=== PATIENT | female | born 1965 | race Caucasian/White ===

== ENCOUNTER 2018-03-23 16:44 | Inpatient (IN) | payer BC, SELFPAY ==
[~2018-03-23] VITALS: Ht 160 cm; Wt 62.1 kg
[~2018-03-23 16:44] MED LIST: AMITRIPTYLINE; CELEXA10 MG PO; COPAXONE
[2018-03-23 16:49] VITALS: BP 171/80
[2018-03-23] MEDS ORDERED: REMERON15 MG PO (16:53)
[2018-03-23] MEDS ORDERED: OMEPRAZOLE40 MG PO (16:53)
[2018-03-23] MEDS ORDERED: COPAXONE20 MG/SYR SUBQ (16:53)
[2018-03-23 17:18] LABS: ABSOLUTE BASOPHILS 0.1 thou/uL (0.0-0.2); ABSOLUTE EOSINOPHILS 0.1 thou/uL (0.0-0.7); ABSOLUTE LYMPHOCYTES 1.6 thou/uL (0.8-5.3); ABSOLUTE MONOCYTES 0.6 thou/uL (0.0-1.2); BASOPHILS 0.8 %; EOSINOPHILS 1.9 %; HEMATOCRIT 38.8 % (37.0-47.0); HEMOGLOBIN 13.9 gm/dL (12.0-15.0); LYMPHOCYTES 24.7 %; MCHC 35.8 g/dL (28.0-37.0); MCV 86.7 fL (80.0-100.0); MPV 7.5 fl. (7.2-11.1); NUCLEATED RBCS 0 /100WBC; PLATELET COUNT* 263 thou/uL (150-400); POLYS 62.6 %; RBC 4.48 mil/uL (4.20-5.00); RDW-CV 13.6 % (10.5-14.5); WBC 6.3 thou/uL (4.0-11.0)
[2018-03-23 17:27] LABS: PROTIME 10.2 Seconds (9.20-11.50)
[2018-03-23 17:28] LABS: ANION GAP 8 mmol/L (7-16); BUN 11 mg/dL (7-18); CALCIUM 9.7 mg/dL (8.5-10.1); CHLORIDE 103 mmol/L (98-107); CO2 28 mmol/L (21-32); CREATININE 0.7 mg/dL (0.6-1.3); GLUCOSE 85 mg/dL (70-99); POTASSIUM 3.5 mmol/L (3.5-5.1); SODIUM 139 mmol/L (136-145)
[2018-03-23 17:39] LABS: ALBUMIN 4.1 g/dL (3.4-5.0); ALKALINE PHOSPHATASE 69 U/L (46-116); LIPASE 104 U/L (73-393); NT-PRO BRAIN NAT PEPTIDE 510 pg/mL (<300); SGOT 20 U/L (15-37); SGPT 27 U/L (30-65); TOTAL BILIRUBIN 0.5 mg/dL (<0.1-1.0); TOTAL PROTEIN 8.1 g/dL (6.4-8.2); TROPONIN-I LEVEL <0.06 ng/mL (<0.06)
[2018-03-23 18:05] VITALS: BP 156/80
[2018-03-23 18:16] LABS: AMP/METHAMP Negative (Negative); BARBITURATES Negative (Negative); BENZODIAZEPINES Negative (Negative); COCAINE Negative (Negative); METHADONE Negative (Negative); OPIATES Negative (Negative); PCP Negative (Negative); THC Negative (Negative)
[2018-03-23 18:27] VITALS: BP 155/76
--- NOTE | 2018-03-23 18:35 | NUR ---
PT ADMITTED FROM ED WITH CHEST PAIN. TELE SR, HRR. C/O SLIGHT SOA AT REST. RESPIRATIONS EVEN AND UNLABORED AT REST. ABLE TO TRANSFER INDEPENDENTLY. PT ORIENTED TO ROOM. PT ABLE TO MAKE NEEDS KNOWN, CALL LIGHT IN REACH
[2018-03-23 20:28] VITALS: BP 127/67
[2018-03-24 00:09] VITALS: BP 126/77
[2018-03-24 04:26] VITALS: BP 138/68
[2018-03-24 04:56] LABS: CHOLESTEROL 196 mg/dL (<200); HDL CHOLESTEROL 84 mg/dL (>40); LDL CHOLESTEROL 103 mg/dL (<100); TC:HDL 2.3 Ratio (Not establshd); TRIGLYCERIDE 49 mg/dL (<150); VLDL 10 mg/dL (<40)
[2018-03-24 05:00] LABS: SERUM ASSESSMENT Clear
--- NOTE | 2018-03-24 06:55 | NUR ---
PT IS ABLE TO COMMUNICATE HER NEEDS TO STAFF EFFECTIVELY. SHE HAS DENIED THE NEED FOR PAIN MEDICATION UP TO THIS TIME. SHE HAS BEEN NPO SINCE MIDNIGHT FOR A LIPIN PANEL BLOOD DRAW THIS AM AND A STRESS TEST TO BE SCHEDULED LATER TODAY.
[2018-03-24 08:00] VITALS: BP 146/81
[2018-03-24 12:00] VITALS: BP 134/61
[2018-03-24 16:00] VITALS: BP 127/53
[2018-03-24 16:34] VITALS: BP 134/61
--- NOTE | 2018-03-24 17:23 | NUR ---
ASSUMED CARE OF PT AT 0730. PT WAS NPO THIS AM FOR A STRESS TEST THAT WAS COMPLETED THIS AFTERNOON. AWAITING RESULTS OF STRESS TEST AT THIS TIME. PT IS TO DISCHARGEIF STRESS TEST RESULTS ARE NORMAL. PT HAS BEEN CALM AND COOPERATIVE WITH NO C/O PAIN OR DISTRESS TODAY. VSS AND TRACING ST ON THE MONITOR. HOURLY ROUNDING COMPLETED FOR PATIENT COMFORT AND SAFTEY. NURSIGN WILL CONTINUE TO MONITOR.
--- NOTE | 2018-03-24 18:28 | NUR ---
PT IS BEGINING TO BECOME AGGITATED WATING FOR RESULTS. THIS NURSE EXPLAINED TO HER THAT ALL TEST HAVE TO BE DICTATED BY THE HIDE BUYER AND THAT THEY ARE WORKING FAST SAFLEY POSSIBLE TO COMPLETE ALL TASK AT HAND. THIS NURSE HAS ALL DISCHARGE PAPERWORK COMPLETED AND READY FOR DISCHARGE SOON CARDIOLOGY STATES THAT THE PT MAY GO.
--- NOTE | 2018-03-24 19:59 | CARDNUC ---
[place] [address] CARDIAC NUCLEAR IMAGING REPORT Name: SKYE DEVLIN Room: [address] IN [facility]#: [id number] Admission: 03/23/18 Attend Phys: Wiley Oleary, Discharge: Date of : 67 Date of Service: 03/24/181958 Report #: [id number] THIS REPORT FOR: //name// APPROVED REPORT Study performed: 03/23/2018 18:28:00 Indication: Chest pain Patient Location: Out-Patient Stress Tech: Claudia Mark Stress Nurse: Daisy Hatfield RN Ht: 5 ft 3 in Wt: 137 lbs BSA: 1.65 m2 BMI: 24.26 Medical History Medical History: tachycardia, MS Medications: asa Allergies: amitriptylline Cardiac Risk Factors: - Previous Cardiac Procedures: - Exercise History: Physically active Meds Held (24 hrs): - Resting Data Rest SPECT myocardial perfusion imaging was performed in supine position 30 minutes following the intravenous injection of 10.8 mCi of Tc-99m Sestamibi. Time of rest injection: 11:50 The images were gated to evaluate regional wall motion and calculate left ventricular ejection fraction. Administration Route: IV Administration Site: Right Wrist Exercise Stress At peak stress, the patient was injected intravenously with 33.9mCi of Tc-99m Sestamibi. Time of stress injection: 13:40 Administration Route: IV Administration Site: Right Wrist Heart Rate at time of stress injection: 158 bpm. Gated Stress SPECT was performed 30 minutes after stress injection. The images were gated to evaluate regional wall motion and calculate left [place] [address] CARDIAC NUCLEAR IMAGING REPORT Name: SKYE DEVLIN Room: [address]#: [id number] Admission: 03/23/18 Attend Phys: Wiley Oleary, Discharge: Date of : 67 Date of Service: 03/24/181958 Report #: [id number] Prone imaging was performed. Stress Test Details Stress Test: Exercise stress testing was performed using a Telly protocol. HR Max Heart Rate (APMHR): 169 bpm Resting HR: 104 bpm Target HR (85% APMHR): 143 bpm Max HR Achieved: 158 bpm % of APMHR: 93 Recovery HR: 119 bpm HR response to stress: Normal HR response to stress BP Resting BP: 159/80 mmHg Recovery BP: 171/76 mmHg BP response to stress: Normal blood pressure response to stress. ECG Resting ECG: Sinus Rhythm Stress ECG: Sinus Tachycardia ST Change: None Arrhythmia: None Recovery ECG: Sinus Rhythm Recovery ST Change: None Recovery Arrhythmia: None Clinical Reason for Termination: Maximal effort Stress Symptoms: None Exercise duration: 7 min 0 sec Exercise capacity: 8.54 METs Overall Exercise Capacity for Age: Normal The patient tolerated standard Telly protocol exercise without significant symptoms. Stress ECG Conclusion The baseline 12-lead electrocardiogram showed sinus rhythm with no significant ST or T wave abnormalities. EKGs obtained during and post exercise showed sinus rhythm and sinus tachycardia with no significant ST or T-wave inversion. There were no stress-induced arrhythmias. Study Quality Study: [place] [address] CARDIAC NUCLEAR IMAGING REPORT Name: SKYE DEVLIN Room: [address]#: [id number] Admission: 03/23/18 Attend Phys: Wiley Oleary, Discharge: Date of : 67 Date of Service: 03/24/181958 Report #: [id number] Artifact: Mild Study Data At rest, the left ventricular ejection fraction was 75%.. Post stress, the left ventricular ejection was 75%.. TID = 0.97. Perfusion Perfusion images obtained at rest show a focal area of photopenia in the mid anterior wall consistent with breast attenuation artifact. Post stress images obtained in the supine and prone position show uniform uptake of the radioisotope throughout the myocardium without defect. Wall Motion Normal left ventricular wall motion. Nuclear Conclusion ECG Findings: negative for ischemia Clinical Findings: negative for ischemia Nuclear Findings: negative for ischemia Exercise Capacity: normal Left Ventricular Function: normal Risk Study: low Myocardial perfusion images show no defect to suggest infarct or ischemia. Left ventricular systolic function appears normal on gated studies. This is a low risk study. <Conclusion> The baseline 12-lead electrocardiogram showed sinus rhythm with no significant ST or T wave abnormalities. EKGs obtained during and post exercise showed sinus rhythm and sinus tachycardia with no significant ST or T-wave inversion. There were no stress-induced arrhythmias. <ELECTRONICALLY SIGNED> By: Frankie Perales MD, FACC 03/24/181958 58 58 Frankie Perales MD, FACC /INF
--- NOTE | 2018-03-24 20:08 | NUR ---
ASSUMED PT CARE AT 19:15 REPORT RECEIVED FROM NURSE, DISCHARGE PENDING UPON RECEIPT OF STRESS TEST RESULT. PT IS ALERT AWAKE ORIENTED X 4. SHE IS IMPLATIENTLY WAITING TO BE DISCHARGED. CARDIO CONTACTED. DR CHEEK CALLED AT 19:50 AND SAID STRESS TEST RESULT WAS NORMAL PT IS OK TO GO HOME. PT NOTIFIED. 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 DISCHARGE INSTRUCTION PROVIDED. AND D/C PAPER SIGNED COPY GIVEN TO PT. NURSE ACCOMPANIED PT DOWNSTAIR.PT LEFT THE FLOOR AT 19:55 BELONGINGS BROUGT ALONG.
--- NOTE | 2018-03-25 13:30 | EKG ---
[place] [address] ELECTROCARDIOGRAM REPORT Name: SKYE DEVLIN Room: [address]#: [id number] Admission: 03/23/18 Attend Phys: Wiley Oleary MD Discharge: 03/24/18 Date of : 67 Report #: [id number] THIS REPORT FOR: //name// [facility] ED Test Date: 2018-03-23 Test Time: 16:50:29 Pat Name: SKYE DEVLIN Department: Room: Gender: Cane Burner: : 1965 Requested By: Brayan Stern Order Number: [id number] MD: Frankie Perales Measurements Intervals [place] Rate: 114 P: 76 FL: 158 QRS: -11 QRSD: 87 T: 91 QT: 335 QTc: 462 Interpretive Statements Sinus tachycardia Left atrial enlargement LVH with secondary repolarization abnormality Compared to ECG 09/07/2015 07:36:24 Atrial abnormality now present Left ventricular hypertrophy now present Early repolarization now present Electronically Signed On 03-25-2018 13:30:44 CDT by Frankie Perales [email or web address] <ELECTRONICALLY SIGNED> By: Frankie Perales MD, FACC 03/25/18 1330 1650 1650 Frankie Perales MD, [facility] /EPI
== END 2018-03-24 19:55 | disposition home or self-care (01) | DRG 392 ==
LOC: M.ERS 16:44 → M.2W 17:43 → M.TBA-ER 17:43 → M.2W 18:06
PROVIDERS: Emergency Medicine; ADMIT Internal Medicine
DX: K21.9 Gastro-esophageal reflux disease without esophagitis (principal); G35 Multiple sclerosis; R94.6 Abnormal results of thyroid function studies; Z90.710 Acquired absence of both cervix and uterus; Z85.3 Personal history of malignant neoplasm of breast; Z79.899 Other long term (current) drug therapy; Z88.8 Allergy status to other drugs, medicaments and biological substances; Z82.49 Family history of ischemic heart disease and other diseases of the circulatory system

== ENCOUNTER 2018-07-19 17:06 | Inpatient (IN) | payer BC ==
[~2018-07-19] VITALS: Ht 160 cm; Wt 62.6 kg
--- NOTE | ~2018-07-19 | CON ---
[address] [address] CONSULTATION Name: SKYE DEVLIN Room: [address] IN [facility].#: [id number] Admission: 07/19/18 Attend Phys: Dick Pitts MD Discharge: Date of : 67 Report #: [id number] THIS REPORT FOR: //name// CC: Do Howard [facility] Dick Colon MD DATE OF SERVICE: 07/20/2018 HISTORY OF PRESENT ILLNESS: The patient is a 52-year-old single white female who I was asked to see in the hospital today after she complained of being short of breath. The patient has an extensive past medical history. She had Hodgkin's lymphoma when she was 25 years old with cervical adenopathy and required radiation therapy. She subsequently developed breast cancer requiring bilateral mastectomy followed by chemotherapy. She has a history of multiple sclerosis with visual changes and difficulty ambulating. She receives injections Friday, Friday, Friday under the care of Dr. Dumont, a neurologist in [facility]. She has been admitted here to [facility] in the past. She was actually admitted back in 2007 with weakness. She was admitted here in 2015 after a drug overdose. She was actually just admitted here in March of this year with chest pain. She is noted to be tachycardic. Previous cardiac workup included a nuclear stress test in March that showed breast attenuation, but no evidence of ischemia with normal ejection fraction. She had a previous echocardiogram in 2016 that showed an ejection fraction of 55% with moderate mitral regurgitation. The patient states she stays fairly active and was doing well until yesterday afternoon. She felt short of breath, had a runny nose, cough and was sneezing. She came to the Emergency Room and was admitted. I was asked to see her for further evaluation and treatment. She denies any fever, sweats, headaches. She has had no chest pain. She does note her heart beating fast, but has had no syncope or edema. PAST MEDICAL HISTORY: Otherwise significant for a partial hysterectomy. She has no history of hypertension, diabetes, hyperlipidemia. MEDICATIONS: Consist of a Prilosec. ALLERGIES: SHE HAS INTOLERANCE TO ELAVIL. FAMILY HISTORY: Father had congestive heart failure. 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 She has been a smoker in the past but quit. She has also had a history of alcohol use, but no longer abuses alcohol. REVIEW OF SYSTEMS: She has had no history of stroke, asthma, [place] [address] CONSULTATION Name: CLAUSTAMMYY Venancio Room: [address] IN [facility]#: [id number] Admission: 07/19/18 Attend Phys: Dick Pitts MD Discharge: Date of : 67 Report #: [id number] disease, liver disease, kidney disease or chronic skin condition. PHYSICAL EXAMINATION: GENERAL: Revealed a middle-aged female who appeared in no distress. VITAL SIGNS: She had a blood pressure 130/68, pulse is 120. She is afebrile. HEENT: She was anicteric, conjunctivae pink. Mucous membranes are moist. NECK: Veins do not appear distended. CHEST: Clear to auscultation. CARDIAC: Regular, tachycardia. S4 gallop. ABDOMEN: Soft. EXTREMITIES: Had no edema. Posterior tibial pulse 2+ bilaterally. SKIN: Warm, dry. NEUROLOGIC: Nonfocal. DIAGNOSTIC DATA: ECG showed sinus tachycardia, nonspecific ST and T-wave changes. Chest x-ray today, she had a portable chest x-ray that showed normal heart size, clear lung ernst. She had a CT scan of the chest that is ordered. LABORATORY WORK: Sodium 142, potassium 3.7, creatinine 0.8. Liver function studies were normal. BNP 661. Troponin 0.06. Her TSH is 0.6, T4 0.7. Her white blood cell count 5.9, hemoglobin 14.6. IMPRESSION AND RECOMMENDATION: 1. Shortness of breath. Suspect noncardiac. Recommend no further cardiac evaluation. 2. Sinus tachycardia. I would avoid stimulants such as caffeine. 3. Multiple sclerosis. 4. History of breast cancer. 5. History of Hodgkin disease. 6. Previous alcohol abuse. 7. Previous tobacco abuse. By: 1320 1421Drupali Hadley MD, FACC /nt
[~2018-07-19 17:06] MED LIST changes: +COPAXONE20 MG/SYR SUBQ; +OMEPRAZOLE40 MG PO; +REMERON15 MG PO
[2018-07-19 17:14] VITALS: BP 163/79
[2018-07-19 18:18] LABS: BE 1.1 mmol/L (-2 to +3); HCO3 25.5 mmol/L (22.0-26.0); PCO2 39.9 mmHg (35.0-45.0); pH 7.424 (7.340-7.450)
[2018-07-19 18:18] LABS: ABSOLUTE BASOPHILS 0.1 thou/uL (0.0-0.2); ABSOLUTE EOSINOPHILS 0.1 thou/uL (0.0-0.7); ABSOLUTE LYMPHOCYTES 1.4 thou/uL (0.8-5.3); ABSOLUTE MONOCYTES 0.6 thou/uL (0.0-1.2); ABSOLUTE NEUTROPHILS 3.9 thou/uL (1.6-8.1); EOSINOPHILS 1.2 %; HEMOGLOBIN 14.6 gm/dL (12.0-15.0); MCH 30.6 pg (26.0-34.0); MCHC 35.5 g/dL (28.0-37.0); MCV 86.2 fL (80.0-100.0); MONOCYTES 9.9 %; MPV 8.1 fl. (7.2-11.1); NUCLEATED RBCS 0 /100WBC; PLATELET COUNT* 245 thou/uL (150-400); POLYS 64.9 %; RBC 4.75 mil/uL (4.20-5.00); RDW-CV 13.6 % (10.5-14.5); WBC 5.9 thou/uL (4.0-11.0)
[2018-07-19 18:22] LABS: PO2 52.1 mmHg (75.0-100.0)
[2018-07-19 18:34] LABS: CALCIUM 9.2 mg/dL (8.5-10.1); CREATININE 0.7 mg/dL (0.6-1.3); POTASSIUM 3.1 mmol/L (3.5-5.1)
[2018-07-19 18:39] LABS: ALBUMIN 3.6 g/dL (3.4-5.0); TOTAL BILIRUBIN 0.4 mg/dL (<0.1-1.0); TOTAL PROTEIN 7.4 g/dL (6.4-8.2)
[2018-07-19 18:47] LABS: NT-PRO BRAIN NAT PEPTIDE 661 pg/mL (<300); TROPONIN-I LEVEL <0.06 ng/mL (<0.06)
[2018-07-19 20:00] VITALS: BP 149/75
[2018-07-19 20:15] VITALS: BP 149/86
[2018-07-20] VITALS: BP 138/68
[2018-07-20 04:00] VITALS: BP 140/70
--- NOTE | 2018-07-20 07:33 | NUR ---
ASSUMED CARE OF PT AT 2100. 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 NO COMPLAINTS OF PAIN. UP AD ADELE AND ON 3L 02 NC. DISCUSSED PLAN OF CARE FOR THE EVENING. VERBALIZED UNDERSTANDING. BED LOCKED IN LOWEST POSTION AND CALL LIGHT WITHIN REACH. HOURLY ROUNDING COMPLETED. ALL NEEDS MET. NURSING WILL CONTINUE TO MONITOR.
[2018-07-20 08:00] VITALS: BP 154/76
[2018-07-20 08:55] LABS: URINE BILIRUBIN NEGATIVE (Negative); URINE BLOOD NEGATIVE (Negative); URINE CLARITY CLEAR; URINE COLOR YELLOW; URINE GLUCOSE-RANDOM NEGATIVE (Negative); URINE KETONES NEGATIVE (Negative); URINE LEUKOCYTES-REFLEX NEGATIVE (Negative); URINE NITRITE-REFLEX NEGATIVE (Negative); URINE PROTEIN NEGATIVE (Negative); URINE UROBILINOGEN 0.2 E.U./dl (0.2-1.0)
[2018-07-20 09:43] LABS: CALCIUM 9.2 mg/dL (8.5-10.1); CREATININE 0.8 mg/dL (0.6-1.3); MAGNESIUM 1.5 mg/dL (1.8-2.4); POTASSIUM 3.7 mmol/L (3.5-5.1)
--- NOTE | 2018-07-20 11:35 | NUR ---
Pt is A&O. Resides at home alone. Independent with ADLS, continues to work outside of the home. Pt anxious to dc, stated that she is pending cardiology, ST and possibly a CT, prior to being discharged. No DME. No hx of HH or SNF. No needs anticipated. Following.
--- NOTE | 2018-07-20 11:44 | EKG ---
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: Mimi MERCHANT : 1965 Requested By: Evon Argueta Order Number: [id number] MD: Rick Hadley Measurements Intervals [place] Rate: 138 P: 70 [place]: 113 QRS: -5 QRSD: 86 T: 70 QT: 383 QTc: 581 Interpretive Statements Sinus tachycardia Probable left atrial enlargement Nonspecific repol abnormality, diffuse leads Prolonged QT interval Compared to ECG 03/23/2018 16:50:29 Prolonged QT interval now present Left ventricular hypertrophy no longer present Electronically Signed On 07-20-2018 11:43:57 ELECTRONIC TESTER by Rick Hadley [email or web address] <ELECTRONICALLY SIGNED> By: Rick Hadley MD, FACC 07/20/18 1143 1745 1745 Rick Hadley MD, [facility] /EPI
[2018-07-20 12:28] VITALS: BP 134/65
[2018-07-20 15:08] VITALS: BP 134/65
[2018-07-20 15:13] LABS: BE -2.4 mmol/L (-2 to +3); HCO3 21.1 mmol/L (22.0-26.0); PCO2 32.5 mmHg (35.0-45.0); PO2 79.9 mmHg (75.0-100.0)
== END 2018-07-20 15:47 | disposition home or self-care (01) | DRG 189 ==
LOC: M.ERS 17:06 → M.TBA-ER 18:46 → M.2W 20:22
PROVIDERS: Personal Emergency Response Attendant; ADMIT Internal Medicine
DX: J96.01 Acute respiratory failure with hypoxia (principal); J70.1 Chronic and other pulmonary manifestations due to radiation; G35 Multiple sclerosis; J98.4 Other disorders of lung; E87.6 Hypokalemia; K21.9 Gastro-esophageal reflux disease without esophagitis; R00.0 Tachycardia, unspecified; Z85.71 Personal history of Hodgkin lymphoma; Z90.710 Acquired absence of both cervix and uterus; Z85.3 Personal history of malignant neoplasm of breast; Z92.3 Personal history of irradiation; Z88.8 Allergy status to other drugs, medicaments and biological substances; Z90.13 Acquired absence of bilateral breasts and nipples; Z92.21 Personal history of antineoplastic chemotherapy; Z82.49 Family history of ischemic heart disease and other diseases of the circulatory system